=== PATIENT | male | born 1970 | race Caucasian/White ===

== ENCOUNTER 2018-10-18 17:09 | Emergency (ER) | payer OTHER ==
[~2018-10-18] VITALS: Ht 165.1 cm; Wt 75.0 kg
[~2018-10-18 17:09] MED LIST: HYDR-4353 PO
[2018-10-18 17:26] VITALS: BP 176/91
[2018-10-18] MEDS ORDERED: TETanus/Pertussis (Acell)/Diphther VAC/PF (Tdap-Adult) 0.5ml syringe IM ONE (19:25)
== END 2018-10-18 20:02 | disposition home or self-care (01) ==
LOC: ER 17:10
DX: S61.301D Unspecified open wound of left index finger with damage to nail, subsequent encounter (principal); F12.90 Cannabis use, unspecified, uncomplicated; Z88.1 Allergy status to other antibiotic agents; Z79.899 Other long term (current) drug therapy; W26.0XXD Contact with knife, subsequent encounter
CPT/HCPCS: 90471; 90715; 99283

== ENCOUNTER 2018-10-22 13:02 | Emergency (ER) | payer OTHER ==
[~2018-10-22] VITALS: Ht 165.1 cm; Wt 76.0 kg
[2018-10-22 13:25] VITALS: BP 136/93
== END 2018-10-22 16:11 | disposition home or self-care (01) ==
LOC: ER 13:02
DX: S61.301D Unspecified open wound of left index finger with damage to nail, subsequent encounter (principal); F12.90 Cannabis use, unspecified, uncomplicated; Z88.3 Allergy status to other anti-infective agents; Z88.1 Allergy status to other antibiotic agents; W26.0XXD Contact with knife, subsequent encounter
CPT/HCPCS: 99282; 99283

== ENCOUNTER 2020-03-21 12:33 | Outpatient (CLI) | payer MEDICAID ==
[~2020-03-21] VITALS: Ht 166.4 cm; Wt 74.4 kg
[2020-03-21] MEDS ORDERED: albuterol 2.5 MG/3 ML nebule NEB ONE (13:15)
== END 2020-03-21 23:59 | disposition home or self-care (01) ==
LOC: RT 12:33
DX: J44.9 Chronic obstructive pulmonary disease, unspecified (principal); Z87.09 Personal history of other diseases of the respiratory system
CPT/HCPCS: 94060; 94760

== ENCOUNTER 2023-08-29 15:41 | Emergency (ER) | payer MEDICAID ==
[~2023-08-29] VITALS: Ht 167.6 cm; Wt 85.9 kg
--- NOTE | 2023-08-29 15:56 | NUR ---
Pt taking trifecta and albuterol pmh of COPD
[2023-08-29 18:00] VITALS: BP 129/76; PULSE 88; RESP 16; TEMP 98.3; O2SAT 94
[2023-08-29] MEDS ORDERED: PRED20TA PO (18:14)
== END 2023-08-29 18:10 | disposition home or self-care (01) ==
LOC: ER 15:42
DX: M54.16 Radiculopathy, lumbar region (principal); F12.10 Cannabis abuse, uncomplicated; Z88.8 Allergy status to other drugs, medicaments and biological substances; Z79.899 Other long term (current) drug therapy
CPT/HCPCS: 99283